=== PATIENT | female | born 1945 | race Caucasian/White ===

== ENCOUNTER → 2017-06-15 | Outpatient (CLI) | payer MEDICARE, OTHER ==
[~2017-06-15] MED LIST: CHOLESTEROL MED PO; HEART MED PO; HTN MED PO
[2017-06-15 06:36] LABS: BASO % 0.5 % (0.0-1.0); EOS # 0.1 10*3/uL (0.0-0.4); EOS % 0.9 % (1.0-4.0); HEMATOCRIT 42.1 % (37.0-47.0); LYMPH # 2.5 10*3/uL (1.3-4.4); LYMPH % 32.2 % (27.0-41.0); MEAN CELL VOLUME 86.8 fl (81.0-99.0); MEAN CORPUSCULAR HGB 28.9 pg (27.0-31.0); MEAN CORPUSCULAR HGB CONC 33.3 g/dl (33.0-37.0); MEAN PLATELET VOLUME 11.3 fl (9.6-12.3); MONO # 0.7 10*3/uL (0.1-1.0); MONO % 8.7 % (3.0-9.0); NEUT # 4.4 10*3/uL (2.3-7.9); NEUT % 57.4 % (47.0-73.0); PLATELET COUNT AUTOMATED 270 10*3/uL (130-400); RED BLOOD COUNT 4.85 10*6/uL (4.10-5.10); RED CELL DISTRI WIDTH 13.1 % (0-14.5); WHITE BLOOD COUNT 7.6 10*3/uL (4.8-10.8)
[2017-06-15 06:40] LABS: ALBUMIN 3.9 gm/dl (3.1-4.5); ALKALINE PHOSPHATASE 83 U/L (45-117); BILIRUBIN, DIRECT < 0.1 mg/dL (0.0-0.2); BILIRUBIN, TOTAL 0.6 mg/dl (0.2-1.0); BUN 18 mg/dl (7-24); CARBON DIOXIDE 27 mmol/L (21-32); CHLORIDE 103 mmol/L (98-107); CHOLESTEROL 201 mg/dL (<200); EST GLOM FILT AFRICAN AMERICAN > 60 ml/min; GLUCOSE 111 mg/dL (65-99); HDL CHOLESTEROL 55 mg/dl (40-60); LDL CHOLESTEROL 105 mg/dL (9-159); PHOSPHOROUS 3.5 mg/dL (2.5-4.9); POTASSIUM 4.1 mmol/L (3.5-5.1); SGOT/AST 15 IU/L (3-35); SGPT/ALT 26 U/L (12-78); SODIUM 140 mmol/L (136-145); TOTAL PROTEIN 7.9 gm/dL (6.4-8.2); TRIGLYCERIDES 205 mg/dl (<150); VLDL CHOLESTEROL 41 mg/dL (6-40)
[2017-06-15 08:04] LABS: FOLIC ACID > 24.00 ng/mL (>5.38)
== END | disposition home or self-care (01) ==
LOC: LAB 05:09
PROVIDERS: Internal Medicine
DX: I48.2 Chronic atrial fibrillation (principal); I10 Essential (primary) hypertension; E78.2 Mixed hyperlipidemia

== ENCOUNTER → 2017-11-28 | Outpatient (CLI) | payer MEDICARE, OTHER ==
[2017-11-28 07:30] LABS: BASO % 0.5 % (0.0-1.0); EOS # 0.1 10*3/uL (0.0-0.4); EOS % 1.3 % (1.0-4.0); HEMATOCRIT 41.5 % (37.0-47.0); HEMOGLOBIN 13.7 g/dl (12.0-16.0); LYMPH # 2.1 10*3/uL (1.3-4.4); LYMPH % 27.9 % (27.0-41.0); MEAN CELL VOLUME 87.2 fl (81.0-99.0); MEAN CORPUSCULAR HGB 28.8 pg (27.0-31.0); MEAN PLATELET VOLUME 10.8 fl (9.6-12.3); MONO # 0.7 10*3/uL (0.1-1.0); MONO % 8.5 % (3.0-9.0); NEUT # 4.7 10*3/uL (2.3-7.9); NEUT % 61.5 % (47.0-73.0); PLATELET COUNT AUTOMATED 234 10*3/uL (130-400); RED BLOOD COUNT 4.76 10*6/uL (4.10-5.10); WHITE BLOOD COUNT 7.7 10*3/uL (4.8-10.8)
[2017-11-28 08:02] LABS: ALBUMIN 3.7 gm/dl (3.1-4.5); ALKALINE PHOSPHATASE 85 U/L (45-117); BILIRUBIN, DIRECT < 0.1 mg/dL (0.0-0.2); BUN 20 mg/dl (7-24); CHLORIDE 103 mmol/L (98-107); CHOLESTEROL 204 mg/dL (<200); HDL CHOLESTEROL 60 mg/dl (40-60); LDL CHOLESTEROL 89 mg/dL (9-159); PHOSPHOROUS 3.6 mg/dL (2.5-4.9); POTASSIUM 4.2 mmol/L (3.5-5.1); SGOT/AST 21 IU/L (3-35); SGPT/ALT 31 U/L (12-78); SODIUM 141 mmol/L (136-145); TOTAL PROTEIN 7.6 gm/dL (6.4-8.2); TRIGLYCERIDES 274 mg/dl (<150); VLDL CHOLESTEROL 55 mg/dL (6-40)
== END | disposition home or self-care (01) ==
LOC: LAB 07:10
PROVIDERS: Internal Medicine
DX: I48.2 Chronic atrial fibrillation (principal); E78.2 Mixed hyperlipidemia; I10 Essential (primary) hypertension; R79.89 Other specified abnormal findings of blood chemistry

== ENCOUNTER → 2018-03-28 | Outpatient (CLI) | payer MEDICARE, OTHER | END | disposition home or self-care (01) | LOC: US 12:02 → MRI 14:00 | DX: I65.23 Occlusion and stenosis of bilateral carotid arteries (principal); I25.9 Chronic ischemic heart disease, unspecified; R27.0 Ataxia, unspecified; R29.6 Repeated falls ==

== ENCOUNTER → 2018-04-24 | Outpatient (CLI) | payer MEDICARE, OTHER ==
[2018-04-24 10:58] LABS: CREATININE 1.02 mg/dL (0.55-1.02)
== END | disposition home or self-care (01) ==
LOC: LAB 10:28 → MRI 11:00
PROVIDERS: Radiology Diagnostic Radiology
DX: I65.22 Occlusion and stenosis of left carotid artery (principal); R27.0 Ataxia, unspecified; I10 Essential (primary) hypertension

== ENCOUNTER → 2018-12-26 | Outpatient (CLI) | payer MEDICARE, OTHER ==
[2018-12-26 14:22] LABS: BASO % 0.3 % (0.0-1.0); EOS % 0.6 % (1.0-4.0); HEMATOCRIT 44.2 % (37.0-47.0); HEMOGLOBIN 14.7 g/dl (12.0-16.0); LYMPH # 1.9 10*3/uL (1.3-4.4); LYMPH % 30.1 % (27.0-41.0); MEAN CELL VOLUME 90.4 fl (81.0-99.0); MEAN CORPUSCULAR HGB 30.1 pg (27.0-31.0); MEAN CORPUSCULAR HGB CONC 33.3 g/dl (33.0-37.0); MEAN PLATELET VOLUME 10.7 fl (9.6-12.3); MONO # 0.6 10*3/uL (0.1-1.0); MONO % 9.1 % (3.0-9.0); NEUT # 3.8 10*3/uL (2.3-7.9); NEUT % 59.6 % (47.0-73.0); PLATELET COUNT AUTOMATED 281 10*3/uL (130-400); RED BLOOD COUNT 4.89 10*6/uL (4.10-5.10); RED CELL DISTRI WIDTH 12.9 % (0-14.5); WHITE BLOOD COUNT 6.4 10*3/uL (4.8-10.8)
[2018-12-26 14:49] LABS: ALBUMIN 3.9 gm/dl (3.1-4.5); CREATININE 1.18 mg/dL (0.55-1.02); PHOSPHOROUS 4.3 mg/dL (2.5-4.9); POTASSIUM 4.8 mmol/L (3.5-5.1)
[2018-12-26 15:13] LABS: PTH INTACT 75.8 pg/mL (18.5-88.0); VITAMIN D, 25-HYDROXY 17.1 ng/mL (30-100)
[2018-12-26 15:14] LABS: BILIRUBIN NEGATIVE (NEGATIVE); BLOOD NEGATIVE (NEGATIVE); CLARITY CLEAR (CLEAR); COLOR YELLOW (YELLOW); GLUCOSE NEGATIVE (NEGATIVE); KETONE TRACE (NEGATIVE); LEUKO ESTERASE TRACE (NEGATIVE); NITRITE NEGATIVE (NEGATIVE); PH 5.5 (5.0-9.0); UROBILINOGEN 0.2 E.U./dl (0.2-1.0)
[2018-12-26 15:20] LABS: BACTERIA 2+; MUCOUS TRACE; RBC 0-2 rbc/hpf (0-2)
== END | disposition home or self-care (01) ==
LOC: LAB 13:45
PROVIDERS: Internal Medicine Nephrology
DX: N18.3 Chronic kidney disease, stage 3 (moderate) (principal); N25.81 Secondary hyperparathyroidism of renal origin; Z79.899 Other long term (current) drug therapy

== ENCOUNTER → 2019-06-23 | Outpatient (CLI) | payer MEDICARE, OTHER ==
[~2019-06-23] MED LIST changes: +AMLODIPINE BESYL5 MG PO; +COLCHICINE0.6 M1 PO; +DILTIAZEM 24HR120 MG PO; +DOCUSATE SODIU100 M2 PO; +FEVER REDUCER650 MG R; +HYDROCODONE-AC1 EAC1 PO; +IRON325 M1 PO; +METHYLPREDNISONE4 MG PO; +MILK OF MA400 MG/5 M PO; +PRADAXA150 MG PO; +PROPAFENONE HC225 M1 PO; +PROPAFENONE HC225 MG PO; +VITAMIN D32000 UNI1 PO
[2019-06-23 11:23] LABS: BASO % 0.3 % (0.0-1.0); EOS % 0.6 % (1.0-4.0); HEMATOCRIT 42.7 % (37.0-47.0); HEMOGLOBIN 14.1 g/dl (12.0-16.0); LYMPH # 1.9 10*3/uL (1.3-4.4); LYMPH % 27.4 % (27.0-41.0); MEAN CELL VOLUME 90.5 fl (81.0-99.0); MEAN CORPUSCULAR HGB 29.9 pg (27.0-31.0); MEAN PLATELET VOLUME 11.1 fl (9.6-12.3); MONO # 0.6 10*3/uL (0.1-1.0); MONO % 8.6 % (3.0-9.0); NEUT # 4.4 10*3/uL (2.3-7.9); PLATELET COUNT AUTOMATED 222 10*3/uL (130-400); RED BLOOD COUNT 4.72 10*6/uL (4.10-5.10); RED CELL DISTRI WIDTH 12.6 % (0-14.5); WHITE BLOOD COUNT 6.9 10*3/uL (4.8-10.8)
[2019-06-23 11:51] LABS: ALBUMIN 3.9 gm/dl (3.1-4.5); BUN 19 mg/dl (7-24); CHLORIDE 105 mmol/L (98-107); CREATININE 0.92 mg/dL (0.55-1.02); PHOSPHOROUS 3.9 mg/dL (2.5-4.9); POTASSIUM 4.2 mmol/L (3.5-5.1); SODIUM 139 mmol/L (136-145)
[2019-06-23 12:35] LABS: BILIRUBIN NEGATIVE (NEGATIVE); BLOOD NEGATIVE (NEGATIVE); CLARITY SL CLOUDY (CLEAR); COLOR YELLOW (YELLOW); GLUCOSE NEGATIVE (NEGATIVE); KETONE NEGATIVE (NEGATIVE); LEUKO ESTERASE TRACE (NEGATIVE); NITRITE NEGATIVE (NEGATIVE); PH 5.5 (5.0-9.0); UROBILINOGEN 0.2 E.U./dl (0.2-1.0)
[2019-06-23 13:47] LABS: BACTERIA 1+; MUCOUS 2+
[2019-06-23 13:57] LABS: PTH INTACT 70.3 pg/mL (18.5-88.0); VITAMIN D, 25-HYDROXY 21.9 ng/mL (30-100)
== END | disposition home or self-care (01) ==
LOC: LAB 10:50
PROVIDERS: Internal Medicine Nephrology
DX: N25.81 Secondary hyperparathyroidism of renal origin (principal); N18.3 Chronic kidney disease, stage 3 (moderate); Z79.899 Other long term (current) drug therapy

== ENCOUNTER 2019-07-29 18:46 | Emergency (ER) | payer MEDICARE, OTHER ==
[~2019-07-29] VITALS: Wt 72.6 kg
[~2019-07-29 18:46] MED LIST changes: -COLCHICINE0.6 M1 PO; -DILTIAZEM 24HR120 MG PO; -DOCUSATE SODIU100 M2 PO; -FEVER REDUCER650 MG R; -IRON325 M1 PO; -METHYLPREDNISONE4 MG PO; -MILK OF MA400 MG/5 M PO; -PROPAFENONE HC225 M1 PO
[2019-07-29 18:51] VITALS: BP 143/68
== END 2019-07-29 22:44 ==
LOC: ED 18:46
DX: M25.572 Pain in left ankle and joints of left foot (principal); M79.89 Other specified soft tissue disorders; I48.91 Unspecified atrial fibrillation; I10 Essential (primary) hypertension; E78.00 Pure hypercholesterolemia, unspecified; Z88.0 Allergy status to penicillin; Z91.040 Latex allergy status; Z79.899 Other long term (current) drug therapy

== ENCOUNTER 2019-08-04 08:59 | Inpatient (IN) | payer MEDICARE, OTHER ==
[2019-08-04] VITALS (18 sets, daily range): BP systolic 86–141; BP diastolic 57–88
[~2019-08-04] VITALS: Ht 165.1 cm; Wt 81.9 kg
[2019-08-04 09:18] LABS: BASO # 0.1 10*3/uL (0.0-0.1); BASO % 0.4 % (0.0-1.0); EOS # 0.1 10*3/uL (0.0-0.4); EOS % 0.5 % (1.0-4.0); HEMATOCRIT 38.5 % (37.0-47.0); HEMOGLOBIN 12.5 g/dl (12.0-16.0); LYMPH % 25.4 % (27.0-41.0); MEAN CELL VOLUME 90.2 fl (81.0-99.0); MEAN CORPUSCULAR HGB 29.3 pg (27.0-31.0); MEAN CORPUSCULAR HGB CONC 32.5 g/dl (33.0-37.0); MEAN PLATELET VOLUME 9.6 fl (9.6-12.3); MONO # 1.1 10*3/uL (0.1-1.0); MONO % 9.4 % (3.0-9.0); NEUT # 7.6 10*3/uL (2.3-7.9); NEUT % 63.5 % (47.0-73.0); PLATELET COUNT AUTOMATED 586 10*3/uL (130-400); RED BLOOD COUNT 4.27 10*6/uL (4.10-5.10); RED CELL DISTRI WIDTH 12.9 % (0-14.5); WHITE BLOOD COUNT 11.9 10*3/uL (4.8-10.8)
[2019-08-04 09:29] LABS: ACT PARTIAL THROMBO TIME 28.5 SECONDS (20.0-32.1)
[2019-08-04 09:34] LABS: ALBUMIN 2.7 gm/dl (3.1-4.5); ALKALINE PHOSPHATASE 98 U/L (45-117); BUN 17 mg/dl (7-24); CHLORIDE 104 mmol/L (98-107); CREATININE 0.83 mg/dL (0.55-1.02); POTASSIUM 3.5 mmol/L (3.5-5.1); SGOT/AST 13 IU/L (3-35); SGPT/ALT 27 U/L (12-78); SODIUM 140 mmol/L (136-145); TOTAL PROTEIN 6.6 gm/dL (6.4-8.2)
[2019-08-04 09:37] LABS: TROPONIN I < 0.015 ng/ml (<0.045)
[2019-08-04] MEDS ORDERED: METHYLPREDNISONE4 MG PO (09:46)
[2019-08-04] MEDS ORDERED: VITAMIN D32000 UNI1 PO (09:53)
[2019-08-04] MEDS ORDERED: COLCHICINE0.6 M1 PO (09:54)
[2019-08-04] MEDS ORDERED: IRON325 M1 PO (09:55)
[2019-08-04] MEDS ORDERED: FEVER REDUCER650 MG R (09:56)
[2019-08-04] MEDS ORDERED: DOCUSATE SODIU100 M2 PO (09:56)
[2019-08-04] MEDS ORDERED: PROPAFENONE HC225 M1 PO (09:57)
[2019-08-04] MEDS ORDERED: AMLODIPINE BESYL5 MG PO (09:57)
[2019-08-04] MEDS ORDERED: MILK OF MA400 MG/5 M PO (09:58)
[2019-08-04] MEDS ORDERED: PRADAXA150 MG PO (09:58)
--- NOTE | 2019-08-04 10:59 | NUR ---
LT ARM OCL THAT WAS NOT REMOVED FOR WOUND ASSSESSMENT. SHE DENIES WOUNDS TO LT ARM.
--- NOTE | 2019-08-04 11:44 | NUR ---
CONVERTED TO NSR RATE IN THE 'S.
--- NOTE | 2019-08-04 12:08 | NUR ---
A 73, admitted to ICCU, under the services of DOLORES Corral DO with a diagnosis of AF RVR. Chief complaint is WAS AWAKENED FEELING HOT AND DIZZY THIS am. er VISIT WAS ADVISED , PT. HX AF FOUND W/ hr 140'S . Patient arrived via stretcher from ER. Monitor applied. Initial assessment completed. Vital signs taken and recorded. DOLORES CORRAL DO notified of admission to the unit. Orders received. See assessment for past medical history, medications and allergies. Patient and/or family oriented to unit. [facility] ICCU visitation policy reviewed. Clothing/patient valuable form completed. SUZE PALM
--- NOTE | 2019-08-04 12:51 | NUR ---
STYLE ADVISOR spoke with the patient and family about DPOA-HC papers. STYLE ADVISOR left the papers for the patient to review with her and family. Patient requested to come back in a day or so to have them witnessed and signed. -MIKE Montana
--- NOTE | 2019-08-04 13:00 | NUR ---
Dr. Murillo was notified of consult , states to leave [facility] on and he will see her in the morning.
--- NOTE | 2019-08-04 13:41 | NUR ---
PHYSICAL THERAPY Nursing screen received and chart reviewed. Recommend PT evaluation when medically appropriate. Thank you. Monisha Cortes,PT,DPT.
--- NOTE | 2019-08-04 13:43 | NUR ---
Nursing screen received and chart reviewed. Patient hospitalized today with heart rate in the 140's and in ICCU. At this time patient is not appropriate for OT evaluation. If patient shoule have a decline in ADLs or functional mobility/safety then refer to OT when medically appropriate. Thank you. Amada Oliver OTR/l
--- NOTE | 2019-08-04 14:01 | NUR ---
Dr. Murillo in to [facility]. aware of slight elevation in troponin.
--- NOTE | 2019-08-04 14:01 | NUR ---
To rad for CTA.
--- NOTE | 2019-08-04 16:08 | NUR ---
Dr. natarajan was notified of troponin level .
--- NOTE | 2019-08-04 16:47 | NUR ---
Dr. Kendall ans. service was called to inform of pt. adm re: Left hip repair w/ existing becky ( removal is slated for 08/06 ) . to address foot drop , and to advise on left arm injury. Ans service stated that Dr. Martins office would be open at [phone]. declined message or call back.
--- NOTE | 2019-08-04 20:00 | NUR ---
PATIENT STATED SHE HAS BEEN HAVING DIARRHEA SINCE RECEIVING HER COLACE. DENIES ANY DIZZINESS AT THIS TIME OR WHEN UP TO BEDSIDE. PATIENT STILL ON CARDIZEM GTT, HR REMAINS 70-80. PATIENT LEFT WITH CALL LIGHT IN REACH.
--- NOTE | 2019-08-04 21:37 | NUR ---
24 HR chart check completed.
[2019-08-05] VITALS (10 sets, daily range): BP systolic 113–141; BP diastolic 53–82
[2019-08-05 05:00] LABS: BASO % 0.3 % (0.0-1.0); EOS # 0.1 10*3/uL (0.0-0.4); EOS % 1.3 % (1.0-4.0); HEMATOCRIT 33.4 % (37.0-47.0); HEMOGLOBIN 11.2 g/dl (12.0-16.0); LYMPH # 3.1 10*3/uL (1.3-4.4); LYMPH % 32.6 % (27.0-41.0); MEAN CELL VOLUME 89.1 fl (81.0-99.0); MEAN CORPUSCULAR HGB 29.9 pg (27.0-31.0); MEAN CORPUSCULAR HGB CONC 33.5 g/dl (33.0-37.0); MEAN PLATELET VOLUME 10.2 fl (9.6-12.3); MONO # 0.8 10*3/uL (0.1-1.0); MONO % 8.8 % (3.0-9.0); NEUT # 5.3 10*3/uL (2.3-7.9); NEUT % 56.6 % (47.0-73.0); PLATELET COUNT AUTOMATED 487 10*3/uL (130-400); RED BLOOD COUNT 3.75 10*6/uL (4.10-5.10); RED CELL DISTRI WIDTH 13.1 % (0-14.5); WHITE BLOOD COUNT 9.4 10*3/uL (4.8-10.8)
[2019-08-05 05:24] LABS: BUN 11 mg/dl (7-24); CHLORIDE 106 mmol/L (98-107); CREATININE 0.56 mg/dL (0.55-1.02); POTASSIUM 3.5 mmol/L (3.5-5.1); SODIUM 140 mmol/L (136-145)
[2019-08-05 05:27] LABS: INTERNATIONAL NORM RATIO 1.1 (2.0-3.5)
--- NOTE | 2019-08-05 09:00 | NUR ---
case management visits with patient, she normally lives at home with , but has been in [facility] for skilled care, physical and occupational therapy, was present, patient states she will return to [facility] when medically stable to complete her rehab, habitat conservation planner will also be following
--- NOTE | 2019-08-05 09:27 | NUR ---
DR YOUSSEF CONSULTED. UPDATED DR KAY ON PT'S CONDITION.
--- NOTE | 2019-08-05 10:23 | NUR ---
Patient is currently short term rehab at [facility] and will return upon discharge. Patient is ok to go when medically stable for discharge.
--- NOTE | 2019-08-05 10:30 | NUR ---
PHYSICAL THERAPY Physical therapy evaluation completed. Full details and evaluation to follow. Moderate complexity skilled evaluation completed ([id number]). PT will work on strength, balance, safety, transfers, and gait per POC. Recommend SNF at discharge. Thank you Viviane Enrique, JOSUE Cortes,PT,DPT
--- NOTE | 2019-08-05 10:30 | NUR ---
Occupational therapy orders receieved and evaluation completed in full in the ICCU this date, 08/05/19. Patient precautions include fall risk, bed alarm, IV lines, NWB L UE, WBAT L LE, post left hip surgery 2 weeks ago, L drop foot with AFO boot. Per OTR evaluation and POC, recommend that patient return to SNF to continue skilled OT/PT. Patient would benefit from continued OT treatment to increase independence in ADLs, functional transfers/mobility, and safety. Patient evaluation is low complexity, [id number]. Thank you for the referral. Sherry Romo, OTR/L
--- NOTE | 2019-08-05 13:24 | NUR ---
OT NOTE Attempted to see pt this P.M. for OT session and upon arrival pt was out of the room. Will check back at a later time/date and continue with POC as able. SUASNNAH Woo/Phong
--- NOTE | 2019-08-05 14:23 | NUR ---
PHYSICAL THERAPY PT SEEN IN ICCU THIS PM. PT SUPINE IN BED UPON ARRIVAL. WITH BED ALARM ON. PT PRESENT WITH AFLO ON L FOOT. PT IDENTIFIED BY NAME AND . PT PERFORMED SUPINE TO SIT WITH Daiana X 2 WITH VC'S TO NOT USE LUE FOR ASSISANCE. PT PERFORMED STS TO AND FROM EOB WITH CGA AND VC'S TO NOT USE LUE. PT GAIT TRAINED 10FT X2 AND 20FT X1 WITH PLATTFORM WALKER WITH CGA. PT HAD SLIGHT ANTALGIC GAIT ON L LE. PT REPORTED 4/10 PAIN IN LLE AND L WRIST. PT PERFORMES SIT TO SUPINE IN BED WITH Daiana X 1 WITH VC'S TO NOT USE LUE. PT PERFORMED BED MOBILITY WITH SBA/Daiana X 1. PT REVIEWED HIP PRECAUTIONS WITH THIS BOAT MECHANIC. PT IN BED WITH BED ALARM AT RIGHT SIDE AND SPOUSE PRESENT. PT SEEN 1:1 FOR 16 MINS. KIRBY PATHAK PTA
--- NOTE | 2019-08-05 14:32 | NUR ---
OT NOTE Pt was seen this P.M. 1:1 for 20 minute OT session. Upon arrival pt was supine in bed with at bedside. Pt identified by name and and had complaints of 4/10 L hip and L wrist pain. Pt presented to therapy with L AFO on which remained on throughout entire session. Pt's resting heart rate was 88 bpm. Pt transferred supine to sit EOB with Sree for assist with management of LLE. Pt completed multiple sit to stand transfers from bed level with CGA and use of platform walker. Challenged pt's static standing tolerance needed for increased I in self care tasks and functional transfers. Pt was able to tolerate aprox 3 minutes at a time before sitting due to fatigue. Pt completed functional mobility around the room with CGA and use of platform walker with good w/w safety. Functional mobility then completed to the bedside commode with CGA and use of platform walker. There she transferred on/off with CGA. Pt then transferred back into bed sit to supine with Sree for assist with LLE. Throughout tasks pt's heart rate remained between 90-98 bpm. Pt was left supine in bed with call light in hand, tray table in place, and bed alarm activated for safety. Continue with rec D/C plan to SNF. OLIMPIA Woo
[2019-08-06] VITALS: BP 124/70
--- NOTE | 2019-08-06 02:52 | NUR ---
SLEEPING WITH EVEN, UNLABORED RESPIRATIONS.
[2019-08-06 04:00] VITALS: BP 125/78
[2019-08-06 05:03] LABS: BASO % 0.2 % (0.0-1.0); EOS # 0.1 10*3/uL (0.0-0.4); EOS % 1.1 % (1.0-4.0); HEMATOCRIT 33.4 % (37.0-47.0); HEMOGLOBIN 11.1 g/dl (12.0-16.0); LYMPH # 2.3 10*3/uL (1.3-4.4); LYMPH % 25.8 % (27.0-41.0); MEAN CELL VOLUME 88.4 fl (81.0-99.0); MEAN CORPUSCULAR HGB 29.4 pg (27.0-31.0); MEAN CORPUSCULAR HGB CONC 33.2 g/dl (33.0-37.0); MEAN PLATELET VOLUME 9.9 fl (9.6-12.3); MONO # 0.9 10*3/uL (0.1-1.0); MONO % 9.8 % (3.0-9.0); NEUT # 5.5 10*3/uL (2.3-7.9); NEUT % 62.8 % (47.0-73.0); PLATELET COUNT AUTOMATED 454 10*3/uL (130-400); RED BLOOD COUNT 3.78 10*6/uL (4.10-5.10); RED CELL DISTRI WIDTH 13.1 % (0-14.5); WHITE BLOOD COUNT 8.8 10*3/uL (4.8-10.8)
[2019-08-06 05:14] LABS: BUN 10 mg/dl (7-24); CHLORIDE 105 mmol/L (98-107); CREATININE 0.56 mg/dL (0.55-1.02); POTASSIUM 3.5 mmol/L (3.5-5.1); SODIUM 140 mmol/L (136-145)
--- NOTE | 2019-08-06 07:48 | NUR ---
Patient updated clinicals faxed to [facility] for review. Patient is short term rehab and is ok to return when medically stable for discharge.
[2019-08-06 08:00] VITALS: BP 113/71
--- NOTE | 2019-08-06 08:00 | NUR ---
PT REFUSED FEOSOL.
--- NOTE | 2019-08-06 08:35 | NUR ---
OT NOTE Pt was seen this A.M. 1:1 for 35 minute OT session. Upon arrival pt was supine in bed. Pt identified by name and and had complaints of "2/10 L arm and L hip pain." Pt's resting heart rate was 79 bpm. Pt presented to therapy with L AFO in place and L wrist brace in place which both remained on throughout entire session. Pt transferred supine to sit EOB with Sree for assist with LLE. Sit to stand completed from bed level with CGA and use of platform walker for UE support. Functional mobility then completed to the bedside commode with CGA and use of platform walker. There she transferred on/off bedside commode with CGA for safety. Clothing management completed with CGA and toilet hygiene completed with CGA while standing. Functional mobility then completed into the bathroom where she stood sink side while washing her face, completing hair care, and brushing her teeth with CGA. Pt did require one seated rest break throughout due to onset of fatigue after aprox 5 minutes of static standing and then was able to stand to finish task. Functional mobility then completed to the bedside recliner where she was left sitting upright under [facility] nurse Jagruti supervision. Throughout all tasks pt's heart rate remained between 88-95 bpm and pt required constant verbal prompts for maintaining NWB status on LUE, pt had fair carry over. Continue with rec D/C plan to SNF. SUSANNAH Woo/Phong
--- NOTE | 2019-08-06 08:56 | NUR ---
DR. KAY IN TO SEE PT.
--- NOTE | 2019-08-06 10:00 | NUR ---
UPDATED DR RUFF ON PT'S POSSIBLE D/C BACK TO [facility]. DISCHARGE ORDERS RECEIVED FROM DR RUFF. DR SHEPHERD UPDATED ON DR RUFF'S DISCHARGE ORDERS.
--- NOTE | 2019-08-06 10:10 | NUR ---
TRANSMITTER CHIEF witnessed DPOA-HC papers being signed with Net Developer Contract Nancy Rodriguez. Patient recieved orignial copy and a copy was provided to Work Newspaper Journalistyany Evans to place in the patient chart. -MIKE [place]
[2019-08-06] MEDS ORDERED: DILTIAZEM 24HR120 MG PO (10:34)
--- NOTE | 2019-08-06 11:03 | NUR ---
Patient is discharged to return to [facility] via [place] [facility] at 12 noon. NH, nursing/steward/stewardess third and patients son Tiago all notified.
--- NOTE | 2019-08-06 11:32 | NUR ---
DISCHARGE PICTURE TAKEN.
--- NOTE | 2019-08-06 11:52 | NUR ---
Discharge instructions reviewed with patient. Patient receptive and verbalizes understanding. Follow-up care arranged. Written instructions given to patient. CESAR NICHOLS
--- NOTE | 2019-08-06 12:00 | NUR ---
TRIED TO GIVE A NURSE TO NURSE REPORT TO [facility] STAFF BUT HAD TO LEAVE A MESSAGE ON AN ANSWERING MACHINE THAT THEY CAN CALL ME BACK HERE FOR REPORT.
--- NOTE | 2019-08-06 15:17 | NUR ---
PHYSICAL THERAPY CO-SIGN I approve of the Physical Therapy notes written above. SARITHA VALADEZ PT,DPT
--- NOTE | 2019-08-07 15:56 | NUR ---
OCCUPATIONAL THERAPY CO-SIGN I approve of the Occupational Therapy notes written above. YIN HAGER OTR/Phong
== END 2019-08-06 12:29 | disposition other institution (70) | DRG 308 ==
LOC: ED 08:59 → EDHOLD 10:31 → ICCU 10:31
PROVIDERS: Emergency Medicine; Internal Medicine; ADMIT Internal Medicine
DX: I48.0 Paroxysmal atrial fibrillation (principal); E43 Unspecified severe protein-calorie malnutrition; R00.0 Tachycardia, unspecified; I11.9 Hypertensive heart disease without heart failure; M19.042 Primary osteoarthritis, left hand; D72.829 Elevated white blood cell count, unspecified; D47.3 Essential (hemorrhagic) thrombocythemia; R73.9 Hyperglycemia, unspecified; E83.41 Hypermagnesemia; E78.5 Hyperlipidemia, unspecified; Z96.642 Presence of left artificial hip joint; M10.9 Gout, unspecified; X58.XXXD Exposure to other specified factors, subsequent encounter; R01.1 Cardiac murmur, unspecified; Z88.0 Allergy status to penicillin; Z91.040 Latex allergy status; Z79.899 Other long term (current) drug therapy; S52.502D Unspecified fracture of the lower end of left radius, subsequent encounter for closed fracture with routine healing; Z68.30 Body mass index [BMI] 30.0-30.9, adult

== ENCOUNTER → 2019-08-26 | Outpatient (CLI) | payer MEDICARE, OTHER ==
[~2019-08-26] MED LIST changes: +COLCHICINE0.6 M1 PO; +DILTIAZEM 24HR120 MG PO; +DOCUSATE SODIU100 M2 PO; +FEVER REDUCER650 MG R; +IRON325 M1 PO; +METHYLPREDNISONE4 MG PO; +MILK OF MA400 MG/5 M PO; +PROPAFENONE HC225 M1 PO
== END | disposition home or self-care (01) ==
LOC: ORTHO 00:05
DX: S52.592D Other fractures of lower end of left radius, subsequent encounter for closed fracture with routine healing (principal); S72.002D Fracture of unspecified part of neck of left femur, subsequent encounter for closed fracture with routine healing; X58.XXXD Exposure to other specified factors, subsequent encounter

== ENCOUNTER → 2019-09-11 | Outpatient (CLI) | payer MEDICARE, OTHER | END | disposition home or self-care (01) | LOC: MRI 08-31 11:00 | DX: G91.2 (Idiopathic) normal pressure hydrocephalus (principal); I10 Essential (primary) hypertension; I73.9 Peripheral vascular disease, unspecified ==

== ENCOUNTER → 2019-09-18 | Outpatient (CLI) | payer MEDICARE, OTHER | END | disposition home or self-care (01) | LOC: ORTHO 02:08 | DX: S52.592D Other fractures of lower end of left radius, subsequent encounter for closed fracture with routine healing (principal); M19.032 Primary osteoarthritis, left wrist; X58.XXXD Exposure to other specified factors, subsequent encounter ==

== ENCOUNTER → 2019-10-28 | Outpatient (CLI) | payer MEDICARE, OTHER | END | disposition home or self-care (01) | LOC: ORTHO 00:58 | DX: M77.32 Calcaneal spur, left foot (principal); M19.072 Primary osteoarthritis, left ankle and foot; Z96.642 Presence of left artificial hip joint ==

== ENCOUNTER 2020-06-28 13:55 | Emergency (ER) | payer MEDICARE, OTHER ==
[~2020-06-28] VITALS: Ht 165.1 cm; Wt 75.7 kg
[2020-06-28 14:07] VITALS: BP 191/98
== END 2020-06-28 18:58 | disposition home or self-care (01) ==
LOC: ED 13:55
DX: S82.52XA Displaced fracture of medial malleolus of left tibia, initial encounter for closed fracture (principal); I10 Essential (primary) hypertension; E78.00 Pure hypercholesterolemia, unspecified; I48.91 Unspecified atrial fibrillation; Z88.0 Allergy status to penicillin; Z91.040 Latex allergy status; Z79.899 Other long term (current) drug therapy; W01.0XXA Fall on same level from slipping, tripping and stumbling without subsequent striking against object, initial encounter; Y93.89 Activity, other specified; Y92.89 Other specified places as the place of occurrence of the external cause; Y99.8 Other external cause status

== ENCOUNTER → 2022-12-22 | Outpatient (CLI) | payer MEDICARE, OTHER ==
[2022-12-22 08:20] LABS: BASO % 0.5 % (0.0-1.0); EOS # 0.1 10*3/uL (0.0-0.4); HEMATOCRIT 38.2 % (37.0-47.0); LYMPH % 33.1 % (27.0-41.0); MEAN CELL VOLUME 88.8 fl (81.0-99.0); MEAN CORPUSCULAR HGB 29.1 pg (27.0-31.0); MEAN CORPUSCULAR HGB CONC 32.7 g/dl (33.0-37.0); MEAN PLATELET VOLUME 11.1 fl (9.6-12.3); MONO # 0.7 10*3/uL (0.1-1.0); MONO % 11.5 % (3.0-9.0); NEUT # 3.2 10*3/uL (2.3-7.9); NEUT % 53.7 % (47.0-73.0); PLATELET COUNT AUTOMATED 183 10*3/uL (130-400); RED CELL DISTRI WIDTH 12.8 % (0-14.5); WHITE BLOOD COUNT 5.9 10*3/uL (4.8-10.8)
[2022-12-22 11:06] LABS: ALKALINE PHOSPHATASE 57 U/L (46-116); BUN 25 mg/dl (9-23); CHLORIDE 102 mmol/L (98-107); FREE T4 1.12 ng/dl (0.89-1.76); POTASSIUM 4.7 mmol/L (3.4-5.1); SGPT/ALT 110 U/L (10-49); THYROID STIM HORMONE (HS) 2.155 uIU/ml (0.550-4.780)
== END | disposition home or self-care (01) ==
LOC: LAB 07:07
PROVIDERS: ATTEND Internal Medicine Clinical Cardiac Electrophysiology
DX: I48.19 Other persistent atrial fibrillation (principal)

== ENCOUNTER 2023-01-28 20:55 | Emergency (ER) | payer MEDICARE, OTHER ==
[2023-01-28 22:11] VITALS: BP 152/78
== END 2023-01-28 23:17 | disposition home or self-care (01) ==
LOC: ED 20:55
DX: T50.991A Poisoning by other drugs, medicaments and biological substances, accidental (unintentional), initial encounter (principal); I10 Essential (primary) hypertension; I48.91 Unspecified atrial fibrillation; Z88.0 Allergy status to penicillin; Z91.040 Latex allergy status; Z90.89 Acquired absence of other organs; Z98.890 Other specified postprocedural states; Y92.89 Other specified places as the place of occurrence of the external cause

== ENCOUNTER → 2024-05-01 | Outpatient (CLI) | payer MEDICARE, OTHER ==
[2024-05-01 07:23] LABS: BASO % 0.3 % (0.0-1.0); EOS # 0.1 10*3/uL (0.0-0.4); EOS % 1.2 % (1.0-4.0); HEMATOCRIT 36.4 % (37.0-47.0); LYMPH # 1.9 10*3/uL (1.3-4.4); LYMPH % 32.8 % (27.0-41.0); MEAN CORPUSCULAR HGB 29.1 pg (27.0-31.0); MEAN CORPUSCULAR HGB CONC 32.7 g/dl (33.0-37.0); MEAN PLATELET VOLUME 10.8 fl (9.6-12.3); MONO # 0.6 10*3/uL (0.1-1.0); MONO % 9.7 % (3.0-9.0); NEUT # 3.2 10*3/uL (2.3-7.9); NEUT % 55.8 % (47.0-73.0); PLATELET COUNT AUTOMATED 174 10*3/uL (130-400); RED BLOOD COUNT 4.09 10*6/uL (4.10-5.10); RED CELL DISTRI WIDTH 13.5 % (0-14.5); WHITE BLOOD COUNT 5.8 10*3/uL (4.8-10.8)
[2024-05-01 08:07] LABS: ALKALINE PHOSPHATASE 57 U/L (46-116); BUN 18 mg/dl (9-23); CHLORIDE 106 mmol/L (98-107); POTASSIUM 4.5 mmol/L (3.4-5.1); SGPT/ALT 14 U/L (5-49)
== END | disposition home or self-care (01) ==
LOC: LAB 07:04
PROVIDERS: ATTEND Internal Medicine Clinical Cardiac Electrophysiology
DX: I48.0 Paroxysmal atrial fibrillation (principal)

== ENCOUNTER → 2024-11-10 | Outpatient (CLI) | payer MEDICARE, OTHER ==
[2024-11-10 08:08] LABS: BUN 22 mg/dl (9-23); CHLORIDE 105 mmol/L (98-107); POTASSIUM 4.5 mmol/L (3.4-5.1)
== END | disposition home or self-care (01) ==
LOC: LAB 07:05
PROVIDERS: ATTEND Internal Medicine Clinical Cardiac Electrophysiology
DX: I48.0 Paroxysmal atrial fibrillation (principal)

== ENCOUNTER → 2025-06-26 | Outpatient (CLI) | payer MEDICARE, OTHER ==
[2025-06-26 07:41] LABS: BASO # 0.0 10*3/uL (0.0-0.1); BASO % 0.3 % (0.0-1.0); EOS # 0.1 10*3/uL (0.0-0.4); EOS % 0.8 % (1.0-4.0); MEAN CELL VOLUME 88.5 fl (81.0-99.0); MEAN CORPUSCULAR HGB 28.3 pg (27.0-31.0); MEAN PLATELET VOLUME 10.5 fl (9.6-12.3); MONO # 0.7 10*3/uL (0.1-1.0); MONO % 10.9 % (3.0-9.0); NEUT # 3.8 10*3/uL (2.3-7.9); NEUT % 59.7 % (47.0-73.0); NUCLEATED RED BLOOD CELL 0.0 % (0.0-0.0); NUCLEATED RED BLOOD CELL 0.0 10*3/uL (0.0-0.0); PLATELET COUNT AUTOMATED 210 10*3/uL (130-400); RED CELL DISTRI WIDTH 14.0 % (0-14.5)
[2025-06-26 08:04] LABS: BUN 22.0 mg/dl (9-23); SGPT/ALT 11.0 U/L (5-49)
== END ==
LOC: LAB 07:05
PROVIDERS: ATTEND Internal Medicine Clinical Cardiac Electrophysiology
DX: I48.19 Other persistent atrial fibrillation (principal)